=== PATIENT | female | born 1960 | race Caucasian/White ===

== ENCOUNTER 2020-09-07 12:09 | Emergency (ER) | payer OTHER ==
[2020-09-07 12:34] VITALS: BMI 21.2
[2020-09-07 14:55] LABS: HEMATOCRIT 38.5 % (32.4-45.2); HEMOGLOBIN 13.3 GM/dL (10.7-15.3); MCH 32.1 pg (25.7-33.7); MCHC 34.6 g/dl (32.0-36.0); MEAN CELL VOLUME 92.6 fl (80-96); PLATELET COUNT 221 10^3/uL (134-434); RBC 4.15 M/mm3 (3.60-5.2); RDW 12.3 % (11.6-15.6); WHITE BLOOD COUNT 3.5 K/mm3 (4.0-10.0)
[2020-09-07 15:09] LABS: PH,URINE 7.5 (5.0-8.0); URINE APPEARANCE CLEAR; URINE BILIRUBIN NEGATIVE (NEGATIVE); URINE COLOR YELLOW; URINE GLUCOSE (UA) NEGATIVE (NEGATIVE); URINE KETONE NEGATIVE (NEGATIVE); URINE LEUK ESTERASE NEGATIVE (NEGATIVE); URINE NITRITE NEGATIVE (NEGATIVE); URINE PROTEIN NEGATIVE (NEGATIVE); URINE UROBILINOGEN 0.2 mg/dL (0.2-1.0)
[2020-09-07 15:15] LABS: CHLORIDE 102 mmol/L (98-107); SODIUM 135 mmol/L (136-145)
[2020-09-07 15:17] LABS: ALBUMIN 4.6 g/dl (3.4-5.0); ANION GAP 5 MMOL/L (8-16); BLOOD UREA NITROGEN 7.9 mg/dL (7-18); CALCIUM 9.4 mg/dL (8.5-10.1); CO2 27 mmol/L (21-32); GLUCOSE,RANDOM 86 mg/dL (74-106)
[2020-09-07 15:20] LABS: SGOT/AST 54 U/L (15-37); SGPT/ALT 21 U/L (13-61)
[2020-09-07 15:21] LABS: CREATININE 0.6 mg/dL (0.55-1.3)
[2020-09-07 15:22] LABS: BILIRUBIN,TOTAL 0.4 mg/dL (0.2-1); TOT PROT 8.3 g/dl (6.4-8.2)
[2020-09-07 15:23] LABS: ALK PHOS 98 U/L (45-117)
[2020-09-07 15:38] LABS: ANISOCYTOSIS 0; MACROCYTOSIS 0; PLATELET ESTIMATE NORMAL
[2020-09-07 18:03] VITALS: BP 109/72; PULSE 76; TEMP 97.9
== END 2020-09-07 18:11 | disposition home or self-care (01) ==
LOC: JER 12:09
DX: R60.9 Edema, unspecified (principal)
CPT/HCPCS: 36415; 71046-TC-FY; 80053; 81003; 83880; 84484; 85025; 87086; 93005; 93010; 93971-TC; 99284-25